=== PATIENT | male | born 1965 | race Caucasian/White ===

== ENCOUNTER 2017-01-30 17:06 | Inpatient (IN) | payer SELFPAY ==
[~2017-01-30] VITALS: Ht 175.3 cm; Wt 99.5 kg
[~2017-01-30 17:06] MED LIST: ALEVE220 M2 PO; CYCLOBENZAPRINE5 MG PO; CYTOMEL25 MCG PO; FLEXERIL10 MG PO; INDOCIN50 MG PO; KEFLEX500 MG PO; KETOCONAZOLE60 GM TP; LEVOTHYROXINE SODIUM PO; LEVOXYL175 MCG PO; Levothroid,Synthroid PO; MOTRIN600 MG PO; MOTRIN800 MG PO; NOHOMEMEDS; SYNTHROID100 MCG PO; SYNTHROID125 MCG PO; SYNTHROID150 MCG PO; TYLENOL EXTRA500 MG PO; VITAMIN D1000 INTUN PO
[2017-01-30 19:15] LABS: HEMATOCRIT 36.3 % (38.0-50.0); MCH 32.5 PG (29.0-34.0); MCHC 34.2 G/DL (30.0-36.0); PLATELET COUNT 179 K/uL (156-360); RBC DIS.WIDTH-CV 13.2 % (11.8-14.6); RBC DIS.WIDTH-SD 45.9 % (39-53); RED BLOOD COUNT 3.82 M/uL (4.00-5.50); WHITE BLOOD COUNT 7.7 K/uL (4.1-10.2)
[2017-01-30 19:32] LABS: D-DIMER ELISA < 0.15 mg/L FEU (< 0.57)
[2017-01-30 19:36] LABS: CHLORIDE 107 mEq/L (99-109); POTASSIUM 3.7 mEq/L (3.7-5.4); SODIUM 143 mEq/L (136-147)
[2017-01-30 19:38] LABS: GLUCOSE 95 mg/dL (70-99)
[2017-01-30 19:39] LABS: ANION GAP 10 MEQ/L (2-14)
[2017-01-30 19:41] LABS: GFR ESTIMATE (CALCULATED) 40 mL/min/
[2017-01-30 19:42] LABS: UREA NITROGEN (BUN) 19 mg/dL (9-23)
[2017-01-30 19:47] LABS: TROP-I INTERPRETATION NEGATIVE; TROPONIN-I < 0.01 ng/mL (0.0-0.30)
[2017-01-30 21:15] LABS: CREATINE KINASE 3971 IU/L (1-294)
[2017-01-30 21:30] LABS: ADD MIUA? NO; BILIRUBIN NEGATIVE; BLOOD NEGATIVE; COLOR YELLOW ((YELLOW)); GLUCOSE (STRIP) NEGATIVE; KETONES NEGATIVE; LEUKOCYTES NEGATIVE; NITRITE NEGATIVE; PROTEIN (STRIP) 30; SPECIFIC GRAVITY 1.026 (1.000-1.030); UCUL ADDED? NO; UROBILINOGEN 0.2 MG/DL (0.2-1.0)
[2017-01-30] MEDS ORDERED: SYNTHROID175 MCG PO (21:55)
[2017-01-30 22:23] LABS: ALKALINE PHOSPHATASE 36 IU/L (3-129); TOTAL BILIRUBIN 0.4 MG/DL (0.0-1.0)
[2017-01-30 23:07] VITALS: BP 121/74
[2017-01-31 03:23] VITALS: BP 127/82
[2017-01-31 06:02] LABS: TROP-I INTERPRETATION NEGATIVE; TROPONIN-I < 0.01 ng/mL (0.0-0.30)
[2017-01-31 06:36] LABS: HDL CHOLESTEROL 47 MG/DL (Desirable>=40); LDL CHOLESTEROL 192 mg/dL (Desirable<100); NON-HDL CHOLESTEROL 219 mg/dL (Desirable<160); TOTAL CHOLESTEROL 266 mg/dL (Desirable<200); TRIGLYCERIDES 137 MG/DL (Normal: <150)
[2017-01-31 06:46] VITALS: BP 138/87
[2017-01-31 07:16] LABS: Estimated Average Glucose 120 mg/dL (70-123); HEMOGLOBIN A1c (GLYCOHEMOGLOB) 5.8 % HGB (Below 5.7)
[2017-01-31 08:55] LABS: ALKALINE PHOSPHATASE 32 IU/L (3-129); ANION GAP 8 MEQ/L (2-14); CHLORIDE 107 MEQ/L (99-109); GFR ESTIMATE (CALCULATED) 45 mL/min/; GLUCOSE 85 mg/dL (70-99); POTASSIUM 3.7 MEQ/L (3.7-5.4); SODIUM 141 MEQ/L (136-147); TOTAL BILIRUBIN 0.4 MG/DL (0.0-1.0); UREA NITROGEN (BUN) 17 mg/dL (9-23)
[2017-01-31 09:08] LABS: CREATINE KINASE 2659 IU/L (1-294)
[2017-01-31 09:40] LABS: TROP-I INTERPRETATION NEGATIVE; TROPONIN-I < 0.01 ng/mL (0.0-0.30)
[2017-01-31 11:04] VITALS: BP 139/87
[2017-01-31 15:00] VITALS: BP 133/88
[2017-01-31 19:44] VITALS: BP 145/88
[2017-02-01] VITALS (7 sets, daily range): BP systolic 115–144; BP diastolic 68–91
[2017-02-01 05:43] LABS: POINT-OF-CARE METER ID UU13113725
[2017-02-01 07:51] LABS: BASOPHIL COUNT 0.1 K/uL (0-0.1); EOSINOPHIL (%) 5.7 % (0-5); EOSINOPHIL COUNT 0.3 K/uL (0-0.3); IMMATURE GRANULOCYTE (%) 0.9 % (0.0-0.7); IMMATURE GRANULOCYTE COUNT 0.1 K/uL; INSTRUMENT ABS NEUTROPHIL CT 3.1 K/uL; LYMPHOCYTE COUNT 1.7 K/uL (1.0-2.8); MCH 32.4 PG (29.0-34.0); MCHC 33.1 G/DL (30.0-36.0); MCV 98.1 FL (86-99); MEAN PLAT.VOLUME 10.8 uM^3 (9.0-12.4); MONOCYTE (%) 6.4 % (3-12); MONOCYTE COUNT 0.4 K/uL (0-0.8); NEUTROPHIL (%) 55.9 % (45-76); NEUTROPHIL COUNT 3.1 K/uL (1.8-6.4); PLATELET COUNT 165 K/uL (156-360); RBC DIS.WIDTH-CV 13.4 % (11.8-14.6); RBC DIS.WIDTH-SD 48.1 % (39-53); RED BLOOD COUNT 3.67 M/uL (4.00-5.50); WHITE BLOOD COUNT 5.6 K/uL (4.1-10.2)
[2017-02-01 08:36] LABS: ANION GAP 8 MEQ/L (2-14); CHLORIDE 108 MEQ/L (99-109); GFR ESTIMATE (CALCULATED) 57 mL/min/; GLUCOSE 82 mg/dL (70-99); POTASSIUM 4.3 MEQ/L (3.7-5.4); SAMPLE HEMOLYSIS CHECK 2; SAMPLE ICTERIC CHECK 0; SAMPLE LIPEMIA CHECK 0; SODIUM 141 MEQ/L (136-147); UREA NITROGEN (BUN) 16 mg/dL (9-23)
[2017-02-01 08:45] LABS: CREATINE KINASE 1908 IU/L (1-294)
[2017-02-02 04:07] VITALS: BP 104/69
[2017-02-02 06:36] VITALS: BP 120/88
[2017-02-02 11:32] VITALS: BP 140/67
[2017-02-02 15:25] VITALS: BP 108/73
[2017-02-02 19:00] VITALS: BP 152/81
[2017-02-02 23:13] VITALS: BP 122/78
[2017-02-03 03:22] VITALS: BP 119/82
[2017-02-03 07:58] LABS: ANION GAP 8 MEQ/L (2-14); CHLORIDE 106 MEQ/L (99-109); CREATINE KINASE 1312 IU/L (1-294); GFR ESTIMATE (CALCULATED) 52 mL/min/; GLUCOSE 91 mg/dL (70-99); POTASSIUM 3.7 MEQ/L (3.7-5.4); SAMPLE HEMOLYSIS CHECK 0; SAMPLE ICTERIC CHECK 0; SAMPLE LIPEMIA CHECK 0; SODIUM 142 MEQ/L (136-147); UREA NITROGEN (BUN) 15 mg/dL (9-23)
[2017-02-03 09:49] VITALS: BP 138/89
[2017-02-03] MEDS ORDERED: ASPIRIN81 M2 PO (09:49)
[2017-02-03] MEDS ORDERED: FAMOTIDINE20 MG PO (09:49)
[2017-02-03] MEDS ORDERED: SYNTHROID175 MCG PO (09:51)
[2017-02-03 18:11] VITALS: BP 139/92
[2017-02-03 19:00] VITALS: BP 135/80
[2017-02-03 22:42] VITALS: BP 151/76
[2017-02-04 02:53] VITALS: BP 138/78
[2017-02-04 07:29] VITALS: BP 120/81
[2017-02-04 11:09] VITALS: BP 155/89
[2017-02-04 15:40] VITALS: BP 128/79
== END 2017-02-04 17:53 | disposition home or self-care (01) | DRG 644 ==
LOC: EME 17:06 → EDOF 20:38 → 5EAST 20:38 → EDOF 21:25 → 5EAST 23:03
PROVIDERS: Internal Medicine; Physician Assistant Medical
DX: E03.1 Congenital hypothyroidism without goiter (principal); M62.82 Rhabdomyolysis; N17.9 Acute kidney failure, unspecified; N18.2 Chronic kidney disease, stage 2 (mild); R07.9 Chest pain, unspecified; G47.33 Obstructive sleep apnea (adult) (pediatric); E66.9 Obesity, unspecified; Z68.31 Body mass index [BMI] 31.0-31.9, adult; T38.1X6A Underdosing of thyroid hormones and substitutes, initial encounter; Z91.128 Patient's intentional underdosing of medication regimen for other reason; K21.9 Gastro-esophageal reflux disease without esophagitis; J45.909 Unspecified asthma, uncomplicated; I25.2 Old myocardial infarction; E78.5 Hyperlipidemia, unspecified; K59.09 Other constipation
CPT/HCPCS: 71020; 80048; 80053; 80061; 80076; 81003; 82550; 82550 91; 82948; 83036; 83880; 84439; 84443; 84484; 84999; 85025; 85027; 85379; 93005; 93306; 94660; 94760; 94799; 99281; 99285; J1650; J7030